=== PATIENT | female | born 1955 | race Caucasian/White ===

== ENCOUNTER 2020-06-04 14:41 | Observation (INO) | payer BC ==
[2020-06-04] MEDS ORDERED: SODIUM CHLORIDE 0.9% 500 ML 500 ML IV STA (14:45)
[2020-06-04 14:57] LABS: Glucose,Whole Blood 83 mg/dL (75-99)
--- NOTE | 2020-06-04 15:07 | ED ---
General Adult HPI - General Chief complaint: Neuro Symptoms/Deficit Stated complaint: Stroke Time Seen by Provider: 06/04/20 14:45 Source: patient, EMS Mode of arrival: EMS Limitations: no limitations - History of Present Illness Initial comments: Patient presents the ED by ambulance for evaluation. Per EMS, the patient's family reported to them that the patient became acutely aphasic and developed left-sided hemiparesis at about 1400 today. Per EMS, the patient had diffuse left-sided weakness and aphasia on their arrival, but the patient's symptoms have been improving since then. Patient was noted to have left-sided weakness and aphasia on arrival to the ED. A code stroke was called, and patient was sent directly to CT for imaging. After returning from CT imaging, the patient's symptoms completely resolved. Patient states that she feels much better now, and she denies having any weakness or aphasia at this time. Patient denies having any pain, fever or chills, headache, visual changes, focal numbness, neck/back/shoulder pain, chest pain, dyspnea, cough or cold symptoms, palpitations, abdominal pain, nausea or vomiting, diarrhea, urinary symptoms, or any other symptoms or complaints. Patient states that she has a history of TIA s. - Related Data Allergies Allergy/AdvReac Type Severity Reaction Status Date / Time No Known Allergies Allergy Verified 06/04/20 15:03 Review of Systems ROS Statement: Those systems with pertinent positive or pertinent negative responses have been documented in the HPI. ROS Other: All systems not noted in ROS Statement are negative. Past Medical History Past Medical History: CVA/TIA, Diabetes Mellitus, Hyperlipidemia, Hypertension Additional Past Medical History / Comment(s): type 2 DM History of Any Multi-Drug Resistant Organisms: None Reported Past Surgical History: Section, Hysterectomy, Orthopedic Surgery Additional Past Surgical History / Comment(s): thyroidectomy, R meniscus repair, partial hysterectomy Smoking Status: Never smoker Past Alcohol Use History: Occasional Past Drug Use History: None Reported General Exam Limitations: no limitations General appearance: alert, in no apparent distress Head exam: Present: atraumatic, normocephalic Eye exam: Present: normal appearance, PERRL, EOMI ENT exam: Present: normal oropharynx, mucous membranes moist Neck exam: Present: other (Trachea is in midline). Absent: tenderness, meningismus Respiratory exam: Present: normal lung sounds bilaterally. Absent: respiratory distress, wheezes, rales, rhonchi Cardiovascular Exam: Present: regular rate, normal rhythm, normal heart sounds, other (Normal radial pulses bilaterally) GI/Abdominal exam: Present: soft. Absent: distended, tenderness, guarding Extremities exam: Present: full ROM. Absent: tenderness, pedal edema, calf tenderness Back exam: Absent: tenderness Neurological exam: Present: alert, oriented X3, CN II-XII intact. Absent: motor sensory deficit Psychiatric exam: Present: normal affect, normal mood Skin exam: Present: warm, dry, intact, normal color Course Vital Signs 06/04/20 14:45 Pulse Rate 99 Respiratory 16 Rate O2 Sat by Pulse 100 Oximetry - Reevaluation(s) Reevaluation #1: 06/04/20 15:45 Case, H&P and CT findings were discussed with Dr. Pritchett (neurointerventionalist). He agrees at the patient is not a TPA candidate. He agrees with admission for TIA workup. He has no further recommendations at this time. 06/04/20 15:58 Case, H&P, test results/CT findings and my discussion with Dr. Pritchett as above were discussed with Dr. Lawson. He is aware that there is no neurology coverage and the hospital today. He accepts hospital floor admission. He has no further recommendations at this time. 06/04/20 16:20 Patient continues to deny having any focal neuro deficit, and she continues to have a normal neurological exam and ED. Patient is aware of her test results/CT findings and my discussions as above. Patient agrees with hospital admission at this time. EKG Findings - EKG Comments: EKG Findings:: Normal sinus rhythm, ventricular rate of 78 bpm, no ectopy, norm al [place] and QRS intervals, normal QT interval, normal axis, no ST or T-wave abnormality Medical Decision Making - Medical Decision Making I suspect that the patient's symptoms were likely secondary to a TIA. Patient's noncontrast head CT is negative. Patient was given a dose of aspirin in the ED. Case was discussed with neurointerventionalist Dr. Pritchett who agreed with hospital admission for TIA workup. Dr. Lawson has accepted hospital admission. - Lab Data Result diagrams: 06/04/20 14:55 06/04/20 14:55 Lab Results 07/06/04/20 06/04/20 Range/Units 14:54 14:55 14:55 WBC 6.3 (3.8-10.6) k/uL RBC 4.03 (3.80-5.40) m/uL Hgb 11.9 (11.4-16.0) gm/dL Hct 36.2 (34.0-46.0) % MCV 89.9 (80.0-100.0) fL MCH 29.6 (25.0-35.0) pg MCHC 32.9 (31.0-37.0) g/dL RDW 13.0 (11.5-15.5) % Plt Count 296 (150-450) k/uL Neutrophils % 62 % Lymphocytes % 25 % Monocytes % 6 % Eosinophils % 3 % Basophils % 1 % Neutrophils # 3.9 (1.3-7.7) k/uL Lymphocytes # 1.6 (1.0-4.8) k/uL Monocytes # 0.4 (0-1.0) k/uL Eosinophils # 0.2 (0-0.7) k/uL Basophils # 0.1 (0-0.2) k/uL PT 10.2 (9.0-12.0) sec INR 1.0 (<1.2) APTT 24.0 (22.0-30.0) sec Sodium (137-145) mmol/L Potassium (3.5-5.1) mmol/L Chloride (98-107) mmol/L Carbon Dioxide (22-30) mmol/L Anion Gap mmol/L BUN (7-17) mg/dL Creatinine (0.52-1.04) mg/dL Est GFR (CKD-EPI)AfAm (>60 ml/min/1.73 sqM) Est GFR (CKD-EPI)NonAf (>60 ml/min/1.73 sqM) Glucose (74-99) mg/dL POC Glucose (mg/dL) 83 (75-99) mg/dL POC Glu Accreditation Specialist ID Cuban, Suzie Calcium (8.4-10.2) mg/dL Total Bilirubin (0.2-1.3) mg/dL AST (14-36) U/L ALT (4-34) U/L Alkaline Phosphatase (38-126) U/L Troponin I (0.000-0.034) ng/mL Total Protein (6.3-8.2) g/dL Albumin (3.5-5.0) g/dL 06/04/20 06/04/20 Range/Units 14:55 14:55 WBC (3.8-10.6) k/uL RBC (3.80-5.40) m/uL Hgb (11.4-16.0) gm/dL Hct (34.0-46.0) % MCV (80.0-100.0) fL MCH (25.0-35.0) pg MCHC (31.0-37.0) g/dL RDW (11.5-15.5) % Plt Count (150-450) k/uL Neutrophils % % Lymphocytes % % Monocytes % % Eosinophils % % Basophils % % Neutrophils # (1.3-7.7) k/uL Lymphocytes # (1.0-4.8) k/uL Monocytes # (0-1.0) k/uL Eosinophils # (0-0.7) k/uL Basophils # (0-0.2) k/uL PT (9.0-12.0) sec INR (<1.2) APTT (22.0-30.0) sec Sodium 134 L (137-145) mmol/L Potassium 3.9 (3.5-5.1) mmol/L Chloride 101 (98-107) mmol/L Carbon Dioxide 24 (22-30) mmol/L Anion Gap 9 mmol/L BUN 15 (7-17) mg/dL Creatinine 0.80 (0.52-1.04) mg/dL Est GFR (CKD-EPI)AfAm >90 (>60 ml/min/1.73 sqM) Est GFR (CKD-EPI)NonAf 79 (>60 ml/min/1.73 sqM) Glucose 75 (74-99) mg/dL POC Glucose (mg/dL) (75-99) mg/dL POC Glu Accreditation Specialist ID Calcium 8.7 (8.4-10.2) mg/dL Total Bilirubin 0.4 (0.2-1.3) mg/dL AST 21 (14-36) U/L ALT 16 (4-34) U/L Alkaline Phosphatase 86 (38-126) U/L Troponin I <0.012 (0.000-0.034) ng/mL Total Protein 5.7 L (6.3-8.2) g/dL Albumin 3.8 (3.5-5.0) g/dL - Radiology Data Radiology results: report reviewed (Noncontrast CT head shows no acute intracranial abnormality; CT angiogram head/neck with IV contrast findings or pertinent for variant direct take off of the left vertebral artery directly from the aortic arch, unable to exclude a moderate to severe focal atherosclerotic stenosis at its origin, 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
[2020-06-04 15:16] LABS: Basophils # (A) 0.1 k/uL (0-0.2); Basophils % (A) 1 %; Eosinophils # (A) 0.2 k/uL (0-0.7); Eosinophils % (A) 3 %; HCT 36.2 % (34.0-46.0); HGB 11.9 gm/dL (11.4-16.0); Lymphocytes # (A) 1.6 k/uL (1.0-4.8); Lymphocytes % (A) 25 %; MCH 29.6 pg (25.0-35.0); MCHC 32.9 g/dL (31.0-37.0); MCV 89.9 fL (80.0-100.0); Mean Platelet Volume 7.4; Monocytes # (A) 0.4 k/uL (0-1.0); Monocytes % (A) 6 %; Neutrophils # (A) 3.9 k/uL (1.3-7.7); Neutrophils % (A) 62 %; Platelet Count 296 k/uL (150-450); RBC 4.03 m/uL (3.80-5.40); WBC 6.3 k/uL (3.8-10.6)
[2020-06-04 15:23] LABS: Prothrombin Time 10.2 sec (9.0-12.0)
--- NOTE | 2020-06-04 15:25 | CT ---
EXAMINATION TYPE: CT brain wo con for TPA DATE OF EXAM: 06/04/2020 COMPARISON: None HISTORY: 65-year-old female Neuro deficit, acute, stroke suspected, right side weakness TECHNIQUE: Examination was done in axial plane without intravenous contrast. Coronal and sagittal r econstructions performed. CT DLP: 1056 mGycm Automated exposure control for dose reduction was used. FINDINGS: There is no evidence of acute intracranial hemorrhage, acute ischemic changes, mass, mass-effect, or extra-axial fluid collection. There is no effacement of cerebral sulci or basal subarachnoid cister ns. There is no hydrocephalus. There is no midline shift. Strauss-white matter distinction is preserv ed. Mild atherosclerotic calcifications within the carotid siphons. Paranasal sinuses and mastoid air cells well pneumatized. Leftward nasal septal deviation. IMPRESSION: No acute intracranial abnormality seen. If symptoms persist, follow-up CT or MRI.
[2020-06-04 15:26] LABS: ALT 16 U/L (4-34); AST 21 U/L (14-36); African American GFR (CKD) >90 (>60 ml/min/1.73 sqM); Albumin 3.8 g/dL (3.5-5.0); Alkaline Phosphatase 86 U/L (38-126); Anion Gap 9 mmol/L; Blood Urea Nitrogen 15 mg/dL (7-17); Calcium 8.7 mg/dL (8.4-10.2); Carbon Dioxide 24 mmol/L (22-30); Chloride 101 mmol/L (98-107); Glucose 75 mg/dL (74-99); Non-African American GFR(CKD) 79 (>60 ml/min/1.73 sqM); Potassium 3.9 mmol/L (3.5-5.1); Sodium 134 mmol/L (137-145); Total Bilirubin 0.4 mg/dL (0.2-1.3); Total Protein 5.7 g/dL (6.3-8.2)
--- NOTE | 2020-06-04 15:37 | CT ---
EXAMINATION TYPE: CT angio head neck DATE OF EXAM: 06/04/2020 COMPARISON: None HISTORY: 65-year-old female Neuro deficit, acute, stroke suspected TECHNIQUE: Contiguous axial scanning of the head and neck performed with IV Contrast, patient injecte d with 65 mL of Isovue 370. Coronal/sagittal MIP reconstructions performed. 3-D reconstructions gener ated on a dedicated independent workstation. CT DLP: 382.4 mGycm Automated exposure control for dose reduction was used. FINDINGS: NECK: Some breathing motion in the visualized upper lungs. There is variant direct takeoff of the left vertebral artery directly from the aortic arch. Unable to exclude a moderate to severe focal atherosclerotic narrowing at the origin of the left vertebral art paulina. Otherwise, both vertebral arteries appear patent throughout the course. Bovine configuration to the aortic arch. Mild to moderate atelectatic change at the right carotid bifurcation with mild, less than 25% narrowi ng of the right carotid bulb. The remainder of the right common internal carotid arteries are patent. Left common carotid artery is patent. Mild atherosclerotic plaque and calcification at the left carotid bifurcation with mild, less than 20 % narrowing at the left carotid bulb. Remainder of the internal carotid artery is patent. HEAD: The vertebral and basilar arteries are patent. Persistent origin left posterior cerebral artery. This seems to have an early takeoff just beyo nd the clinoid segment of the left ICA and there may be a mild narrowing at its origin, refer to thin cut axial image 58. Small 2 mm outpouching from the distal left ICA prior to the carotid terminus. The bilateral internal carotid arteries are patent as is the remainder of the anterior circulation. No other aneurysmal changes seen. IMPRESSION: 1. NECK: VARIANT DIRECT TAKEOFF OF THE LEFT VERTEBRAL ARTERY DIRECTLY FROM THE AORTIC ARCH. UNABLE TO EXCLUDE A MODERATE TO SEVERE FOCAL ATHEROSCLEROTIC STENOSIS AT ITS ORIGIN. OTHERWISE, NO HEMODYNAMIC ALLY SIGNIFICANT COMMON OR INTERNAL CAROTID ARTERY STENOSIS ON EITHER SIDE. 2. 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 THERE MAY BE A MILD NARROWING AT ITS ORIGIN. ALSO, SMALL 2 MM OUTPOUCHING, POSSIBLE TINY ANEURYSM, FROM THE DISTAL LEFT ICA PRIOR TO THE CAROTID TERMINUS. NO LARGE VESSEL INTRACRANIAL A RTERIAL OCCLUSION.
--- NOTE | 2020-06-04 15:49 | XR ---
EXAMINATION TYPE: XR chest 2V DATE OF EXAM: 06/04/2020 COMPARISON: NONE HISTORY: Right-sided weakness and dysphasia TECHNIQUE: Frontal and lateral views of the chest are obtained. FINDINGS: There is no focal air space opacity, pleural effusion, or pneumothorax seen. The cardiac silhouette size is within normal limits. The osseous structures are intact. IMPRESSION: No acute cardiopulmonary process.
[2020-06-04] MEDS ORDERED: ASPIRIN 325 MG TAB PO STA (16:15)
--- NOTE | 2020-06-04 16:57 | P.HPIM ---
History of Present Illness H&P Date: 06/04/20 Chief Complaint: Left-sided weakness Patient is a 65-year-old female with a known history of hypertension, hyperlipidemia, diabetes type 2, hypothyroidism, history of CVA/TIA and occasional alcohol use came to ER with complaints of left-sided weakness started around 2 PM afternoon today. Patient says that she felt very hot and was going to get a glass of water and turn around, felt like passing out. According to the family and patient was unable to lift her head up and also left arm. Could not lift her left arm above the head but she was able to move her fingers. P atient also had left leg weakness. Symptoms lasted until she come to ER and had CAT scan., For about one half hour. Patient says that her symptoms have been resolved currently. Patient was aphasic on arrival to the ED. Patient says that she was doing yoga yesterday while laying back she felt di zziness twice. Patient says that she also slipped on the stairs on Friday and twisted her knee and fell. Denied any head injury. Patient otherwise denied any complaints of chest pain or shortness of breath. No nausea vomiting or abdominal pain or diarrhea. Denied any recent illnesses. No fever no chills. No cough or sputum production. EKG showed normal sinus rhythm Chest x-ray showed no acute cardiopulmonary process. CT head showed no acute intracranial abnormalities seen. CTA neck showed bradycardia and to direct takeoff of the left vertebral artery directly from the aortic arch. Unable to exclude moderate to severe focal atherosclerotic stenosis at its reason. Otherwise no hemodynamically significant, not internal carotid artery stenosis on either side. 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 There may be a mild narrowing at its origin. Also small 2 mm outpouching possibly tiny aneurysm from the distal prior to the carotid terminal. No large intracranial arterial occlusion. Review of Systems Constitutional: Patient denies any fever or chills . No generalized weakness or weight loss. Abdomen: Patient denied nausea vomiting and diarrhea and abdominal pain. Cardiovascular: Patient denies any chest pain or short of breath no p alpitations. Respiratory: patient denied any cough is from production. No shortness of breath Neurologic: Patient denied any numbness or tingling headache. Musculoskeletal: Patient denies any complaints of joint swelling or deformity. Skin: Negative Psychiatric: Negative Endocrine: No heat or cold intolerance. No recent weight gain. Genitourinary: No dysuria or hematuria. All other 14 point ROS negative except the above Past Medical History Past Medical History: CVA/TIA, Diabetes Mellitus, Hyperlipidemia, Hypertension Additional Past Medical History / Comment(s): type 2 DM History of Any Multi-Drug Resistant Organisms: None Reported Past Surgical History: Section, Hysterectomy, Orthopedic Surgery Additional Past Surgical History / Comment(s): thyroidectomy, R meniscus repair, partial hysterectomy Smoking Status: Never smoker Past Alcohol Use History: Occasional Past Drug Use History: None Reported Medications and Allergies Allergies Allergy/AdvReac Type Severity Reaction Status Date / Time No Known Allergies Allergy Verified 06/04/20 15:03 Physical Exam Vitals: Vital Signs Pulse Resp Pulse Ox 06/04/20 14:45 99 16 100 Intake and Output 06/04/20 06/04/20 06/04/20 06:59 14:59 22:59 Other: Weight 84.369 kg PHYSICAL EXAMINATION: Patient is lying in the bed comfortably, no acute distress, awake alert and oriented.. HEENT: Normocephalic. Neck is supple. Pupils reactive. Nostrils clear. Oral cavity is moist. Ears reveal no drainage. Neck reveals no JVD, carotid bruits, or thyromegaly. CHEST EXAMINATION: Trachea is central. Symmetrical expansion. Lung farmer clear to auscultation and percussion. CARDIAC: Normal S1, S2 with no gallops. No murmurs ABDOMEN: Soft. Bowel sounds normal. No organomegaly. No abdominal bruits. Extremities: reveal no edema. No clubbing or cyanosis Neurologically awake, alert, oriented x3 with well-coordinated movements. No focal deficits noted Skin: No rash or skin lesions. Psychiatric: Coperative. Nonsuicidal Musculoskeletal: No joint swelling or deformity. Normal range of motion. Results CBC & Chem 7: 06/04/20 14:55 06/04/20 14:55 Labs: Abnormal Lab Results - Last 24 Hours (Table) 06/04/20 Range/Units 14:55 Sodium 134 L (137-145) mmol/L Total Protein 5.7 L (6.3-8.2) g/dL Thrombosis Risk Factor Assmnt - DVT/VTE Prophylaxis DVT/VTE Prophylaxis: Pharmacologic Prophylaxis ordered Assessment and Plan Assessment: Left-sided weakness likely due to TIA. Resolved now. CT head is negative for acute changes. Possible orthostatic hypotension History of CVA/TIA with no residual weakness Diabetes type 2 not on any medications Hyperlipidemia Hypothyroidism DVT prophylaxis with heparin subcu Plan: Patient will be continued on telemetry monitoring. Patient was given 1 L fluid bolus in the ER. Continue with aspirin and lipid profile will be ordered. We will check TSH, B12, folate and A1c levels. Neurology was consulted. Orthostatic vitals. Continue to follow and further recommendations based on the clinical course. Time with Patient: Greater than 30
[2020-06-04 17:35] LABS: Glucose,Whole Blood 82 mg/dL (75-99)
[2020-06-04] MEDS: ATORVASTATIN 80 MG TAB PO SCH (21:07)
[2020-06-04] MEDS: VENLAFAXINE HCL 50 MG TAB PO SCH (21:07)
[2020-06-04] MEDS: buPROPion 75 MG TAB PO SCH (21:07)
[2020-06-04 21:15] LABS: Glucose,Whole Blood 136 mg/dL (75-99)
[2020-06-05] MEDS: LEVOTHYROXINE 125 MCG TAB PO SCH (06:24)
[2020-06-05 06:38] LABS: Cholesterol 138 mg/dL (<200); HDL Cholesterol 56 mg/dL (40-60); LDL Cholesterol,Calculated 74 mg/dL (0-99); Triglycerides 42 mg/dL (<150)
[2020-06-05 07:27] LABS: Glucose,Whole Blood 86 mg/dL (75-99)
[2020-06-05] MEDS: buPROPion 75 MG TAB PO SCH ×2 (09:04→22:04)
[2020-06-05] MEDS: LOSARTAN 50 MG TAB PO SCH (09:04)
[2020-06-05] MEDS: amLODIPine 10 MG TAB PO SCH (09:04)
[2020-06-05] MEDS: VENLAFAXINE HCL 50 MG TAB PO SCH ×2 (09:05→22:04)
[2020-06-05] MEDS: MELOXICAM 7.5 MG TAB PO SCH (09:05)
[2020-06-05 12:04] LABS: Glucose,Whole Blood 101 mg/dL (75-99)
--- NOTE | 2020-06-05 13:34 | P.CNNES ---
History of Present Illness Consult date: 06/05/20 Requesting physician: Janessa Lawson Reason for Consult: TIA left flaccid and expressive aphasia. History of Present Illness: Patient is a 65-year-old female, brought to the hospital by EMS after family reported patient became acutely aphasic and developed left-sided hemiparesis at about 2 PM yesterday. Patient arrived to the ER at 2:41 PM. Patient was noted to have gross left hemiparesis and aphasia. Stroke code was activated in the ED. Patient was sent directly to the CT for imaging. When patient came back from CT, her symptoms had resolved. Stroke neurologist Dr. Pritchett was contacted and patient was felt not a candidate for TPA. Patient's vitals in the ER was blood pressure 149/83, pulse rate 68, temperature 97.6. Patient underwent CT head, which showed no acute process. CTA of neck showed ve ry indirect takeoff of the left vertebral artery directly from the aortic arch. Unable to exclude moderate to severe focal atherosclerotic stenosis at its origin. Otherwise no hemodynamically significant, no internal carotid artery stenosis on either side. CTA of the head showed persistent origin left LEATHER SORTER which has an early takeoff just beyond the glenoid segment of the left ICA. There may be a mild narrowing at its origin. Also small, 2 mm outpouching, possibly tiny aneurysm, from the distal left ICA prior to the carotid terminus. No large vessel intracranial arterial occlusion. Chest x-ray showed no acute cardiopulmonary process. EKG shows normal sinus rhythm. Patient's blood test shows normal CBC, Chem-20, total cholesterol is 138, LDL 74, HDL 56 and triglycerides 42. B12 is 358 and TSH normal. Patient tells me that she was playing cards when she felt hot. She stood up to get water and took a drink. She felt will pass out. She sat down. Her dad asked her a few questions and she could not answer. He yelled on patient's to get down quick. 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 She was breathing heavy. Did not have strength to picker and sorter load and unload the glass. She knew what was going on. She felt weak on the left side. Patient was brought to the hospital by ambulance. EMS flow sheet not available. Subsequently her symptoms resolved as mentioned above. Patient has history of diabetes since 2010, hypertension, hyperlipidemia. She is a nonsmoker. She does not take any antiplatelet medication at home. Patient states that she had history of possible TIA about over 20 years ago. She also had history of some seizure type spells about 15-20 years ago. She had multiple seizure type spells within a period of one month. She was found to have low iron. She was never placed on any antiepileptic medication. She has not had an y seizure type spells for last 15-20 years. Review of Systems As mentioned above in detail HPI. Patient denies chest pain, shortness of breath, wheezing or cough. Denies diplopia, nausea vomiting diarrhea. Denies abdominal pain. Denies neck or back pain. All other review of systems unremarkable. Past Medical History Past Medical History: CVA/TIA, Diabetes Mellitus, Hyperlipidemia, Hypertension, Osteoarthritis (OA), Sleep Apnea/CPAP/BIPAP, Thyroid Disorder Additional Past Medical History / Comment(s): type 2 DM. February 2020 fell down the steps and hit the back of head on wall. no loss of consciousness. Did not have medical assessment at that time. 05/31/20 tripped on carpet on stairs and twisted right ankle and knee and was seen in Urgent Care. History of Any Multi-Drug Resistant Organisms: None Reported Past Surgical History: Section, Hysterectomy, Orthopedic Surgery Additional Past Surgical History / Comment(s): thyroidectomy, R meniscus repair, partial hysterectomy Past Anesthesia/Blood Transfusion Reactions: No Reported Reaction Past Psychological History: ADD/ADHD, Bipolar, Depression Smoking Status: Never smoker Past Alcohol Use History: Occasional Past Drug Use History: None Reported - Past Family History Mother Family Medical History: Cancer Additional Family Medical History / Comment(s): Liver cancer Father Family Medical History: Hypertension Medications and Allergies Home Medications Medication Instructions Recorded Confirmed Type Atorvastatin Calcium [Lipitor] 80 mg PO HS 06/04/20 06/04/20 History Levothyroxine Sodium [Synthroid] 125 mcg PO DAILY 06/04/20 06/04/20 History Losartan [Cozaar] 50 mg PO HS 06/04/20 06/04/20 History Meloxicam 15 mg PO DAILY 06/04/20 06/04/20 History Venlafaxine HCl [Effexor] 100 mg PO BID 06/04/20 06/04/20 History amLODIPine [Norvasc] 10 mg PO HS 06/04/20 06/04/20 History buPROPion [Wellbutrin] 75 mg PO BID 06/04/20 06/04/20 History metFORMIN HCL [Glucophage] 500 mg PO BID 06/04/20 06/04/20 History Allergies Allergy/AdvReac Type Severity Reaction Status Date / Time No Known Allergies Allergy Verified 06/04/20 17:11 Physical Examination - Vital Signs Vital Signs: Vital Signs Temp Pulse Pulse Resp BP BP Pulse Ox 06/05/20 09:00 97.8 F 77 18 113/70 99 06/05/20 03:00 98.2 F 77 18 129/82 98 06/04/20 20:15 98.2 F 85 18 112/74 94 L 06/04/20 17:25 97.6 F 68 16 149/83 98 06/04/20 16:52 97.5 F L 71 16 115/73 98 06/04/20 14:45 99 16 100 Intake and Output 06/04/20 06/05/20 06/05/20 22:59 06:59 14:59 Intake Total 500 Balance 500 Intake: IV 500 Sodium Chloride 0.9% 500 500 ml 500 ml @ 999 mls/hr IV .Q31M STA Rx#:[id number] Other: Voiding Method Toilet Toilet Toilet # Voids 1 3 3 Weight 84.369 kg On examination patient is a late middle aged female, in no acute dist ress. Patient is alert awake oriented to time place and person. Speech and language functions are normal. Attention and concentration fund of knowledge is adequate. On cranial examination pupils are round and reacting to light, visual farmer are full, extraocular muscles are intact. Face is symmetric, tongue protrudes the midline. Palatal elevation sensation normal. Hearing and shoulder shrug normal. On muscle strength testing there is no pronator drift and the strength is normal in arms and legs distally and proximally. Reflexes are 1+ in the upper limbs, 2+ in the lower limbs and plantars are withdrawal. Sensory touch is equal. No ataxia for [id number] testing. Tone and bulk of muscles normal. There is no obvious bruit, S1 and S2 audible. No peripheral edema. Chest is clear. Abdomen soft nontender. Results - Laboratory Findings CBC and BMP: 06/04/20 14:55 06/04/20 14:55 Abnormal Lab Findings: Abnormal Labs 06/04/20 06/04/20 14:55 21:10 Sodium 134 L POC Glucose (mg/dL) 136 H Total Protein 5.7 L Assessment and Plan Assessment: * Probable TIA manifesting with difficulty speaking and left-sided weakness, now seems to have completely resolved. Current NIH stroke scale is 0. * Hypertension * Diabetes * Hyperlipidemia Plan: * Patient had possible TIA. Patient has multiple vascular risk factors. She was not on any antiplatelet medication at home. Patient will be started on as pirin regimen daily, and should continue it indefinitely. * We will check 2-D echo to rule out any embolic source. * Continue telemetry monitoring to rule out arrhythmia. * Hemoglobin A1c 5.7, normal. * Patient's total cholesterol is 138, LDL 74, HDL 56 and triglycerides 42. Continue Lipitor 80 mg. * Patient also has history of some seizure type spells in the past. We will check EEG to rule out any epileptiform activity.
[2020-06-05 14:05] LABS: Hemoglobin A1C 5.7 % (4.0-6.0)
[2020-06-05 17:07] LABS: Glucose,Whole Blood 90 mg/dL (75-99)
--- NOTE | 2020-06-05 18:08 | EEG ---
ELECTROENCEPHALOGRAM REPORT DATE OF SERVICE: 06/05/2020 PREAMBLE: This is a 65-year-old female admitted with possible TIA. Patient does have history of seizure disorder in the past. This study is performed to evaluate for any epileptiform activity. EEG FINDINGS: This is a 21-channel routine EEG recording in a patient utilizing 10-20 international system with referential and bipolar montages. Background consists of well developed, well regulated, moderate to high amplitude activity in 9 to 10 hertz alpha. Background is posterior-dominant and reactive to eye opening and closing. Photic driving response was not seen. Mild drowsiness was seen with appearance of bilaterally symmetric theta frequency rhythm. Deeper stages of sleep were not seen. EKG rhythm lead revealed no obvious arrhythmia. No focal or generalized epileptiform activity was seen. IMPRESSION: This is a normal awake and drowsy EEG. No focal lateralized or epileptiform activity was seen. MMODL / IJN: [id number] /
[2020-06-05] MEDS: ASPIRIN 325 MG TAB PO SCH (18:39)
[2020-06-05] MEDS: ATORVASTATIN 80 MG TAB PO SCH (22:04)
[2020-06-05 23:26] LABS: Glucose,Whole Blood 88 mg/dL (75-99)
--- NOTE | 2020-06-06 01:29 | P.PN ---
Subjective Progress Note Date: 06/05/20 Principal diagnosis: TIA Patient is a 65-year-old female with a known history of hypertension, hyperlipidemia, diabetes type 2, hypothyroidism, history of CVA/TIA and occasional alcohol use came to ER with complaints of left-sided weakness started around 2 PM afternoon today. Patient says that she felt very hot and was going to get a glass of water and turn around, felt like passing out. According to the family and patient was unable to lift her head up and also left arm. Could not lift her left arm above the head but she was able to move her fingers. Patient also had left leg weakness. Symptoms lasted until she come to ER and had CAT scan., For about one half hour. Patient says that her symptoms have been resolved currently. Patient was aphasic on arrival to the ED. Patient says that she was doing yoga yesterday while laying back she felt dizziness twice. Patient says that she also slipped on the stairs on Friday and twisted her knee and fell. Denied any head injury. Patient otherwise denied any complaints of chest pain or shortness of breath. No nausea vomiting or abdominal pain or diarrhea. Denied any recent illnesses. No fever no chills. No cough or sputum production. EKG showed normal sinus rhythm Chest x-ray showed no acute cardiopulmonary process. CT head showed no acute intracranial abnormalities seen. CTA neck showed bradycardia and to direct takeoff of the left vertebral artery directly from the aortic arch. Unable to exclude moderate to severe focal atherosclerotic stenosis at its reason. Otherwise no hemodynamically sig nificant, not internal carotid artery stenosis on either side. CTA head showed persistent position left ACUTE CARE SURGEON which he has an early takeoff just beyond the glenoid segment of the left ICA. There may be a mild narrowing at its origin. Also small 2 mm outpouching possibly tiny aneurysm from the distal prior to the carotid terminal. No large intracranial arterial occlusion. 06/05/2020 Patient currently denied any complaints of chest pain or shortness of. No further episodes of left-sided weakness. No speech difficulty. His TIA symptoms have been resolved. Patient was seen by neurology and recommended 2D echocardiogram and EEG which are pending at this time. Otherwise LDL is 74, B12 358, TSH 0.751 and folate level is pending. Patient has been afebrile. No cough or sputum production. Current medications reviewed. Objective - Vital Signs Vital signs: Vital Signs Temp 98.6 F 06/05/20 20:13 Pulse 82 06/05/20 20:13 Resp 18 06/05/20 20:13 BP 128/70 06/05/20 20:13 Pulse Ox 96 06/05/20 20:13 Intake & Output 06/05/20 06/05/20 06/06/20 06:59 18:59 06:59 Intake Total 1280 Balance 1280 Intake: Oral 1280 Other: Voiding Method Toilet Toilet Toilet # Voids 3 3 1 - Exam PHYSICAL EXAMINATION: Patient is lying in the bed comfortably, no acute distress, awake alert and oriented.. HEENT: Normocephalic. Neck is supple. Pupils reactive. Nostrils clear. Oral cavity is moist. Ears reveal no drainage. Neck reveals no JVD, carotid bruits, or thyromegaly. CHEST EXAMINATION: Trachea is central. Symmetrical expansion. Lung farmer clear to auscultation and percussion. CARDIAC: Normal S1, S2 with no gallops. No murmurs ABDOMEN: Soft. Bowel sounds normal. No organomegaly. No abdominal bruits. Extremities: reveal no edema. No clubbing or cyanosis Neurologically awake, alert, oriented x3 with well-coordinated movements. No focal deficits noted Skin: No rash or skin lesions. Psychiatric: Coperative. Nonsuicidal Musculoskeletal: No joint swelling or deformity. Normal range of motion. - Labs CBC & Chem 7: 06/04/20 14:55 06/04/20 14:55 Labs: Abnormal Lab Results - Last 24 Hours (Table) 06/05/20 Range/Units 12:02 POC Glucose (mg/dL) 101 H (75-99) mg/dL Assessment and Plan Assessment: Left-sided weakness likely due to TIA. Resolved now. CT head is negative for acute changes. Possible orthostatic hypotension History of CVA/TIA with no residual weakness Diabetes type 2 not on any medications Hyperlipidemia Hypothyroidism DVT prophylaxis with heparin subcu Plan: Patient will be continued on telemetry monitoring. Patient was given 1 L fluid bolus in the ER. Continue with aspirin and lipid profile will be ordered. TSH, B12, folate and A1c levels reviewed. Neurology has seen the pt. . Orthostatic vitals negative. Continue to follow and further recommendations based on the clinical course. Time with Patient: Greater than 30
[2020-06-06] MEDS: LEVOTHYROXINE 125 MCG TAB PO SCH (06:47)
[2020-06-06 06:51] LABS: Glucose,Whole Blood 89 mg/dL (75-99)
[2020-06-06] MEDS: VENLAFAXINE HCL 50 MG TAB PO SCH (07:30)
[2020-06-06] MEDS: LOSARTAN 50 MG TAB PO SCH (07:30)
[2020-06-06] MEDS: CYANOCOBALAMIN 500 MCG TAB PO SCH ×3 (07:30→12:05)
[2020-06-06] MEDS: ASPIRIN 325 MG TAB PO SCH (07:32)
[2020-06-06] MEDS: buPROPion 75 MG TAB PO SCH (07:32)
[2020-06-06] MEDS: amLODIPine 10 MG TAB PO SCH (07:32)
[2020-06-06 08:16] VITALS: BP 129/79; PULSE 77; RESP 14; TEMP 98.2
[2020-06-06] MEDS: MELOXICAM 7.5 MG TAB PO SCH (08:52)
--- NOTE | 2020-06-06 10:31 | ECHOF ---
Referral Reason:TIA MEASUREMENTS -------- HEIGHT: 170.2 cm WEIGHT: 84.4 kg BP: 113/70 RVIDd: 3.3 cm (< 3.3) IVSd: 1.1 cm (0.6 - 1.1) LVIDd: 3.4 cm (3.9 - 5.3) LVPWd: 1.1 cm (0.6 - 1.1) IVSs: 1.5 cm LVIDs: 2.4 cm LVPWs: 1.6 cm LA Diam: 2.8 cm (2.7 - 3.8) LAESV Index (A-L): 21.09 ml/m Ao Diam: 3.0 cm (2.0 - 3.7) AV Cusp: 2.1 cm (1.5 - 2.6) MV EXCURSION: 18.048 mm (> 18.000) MV EF SLOPE: 74 mm/s (70 - 150) EPSS: 0.4 cm MV E Forrest: 0.99 m/s MV DecT: 340 ms MV A Forrest: 1.05 m/s MV E/A Ratio: 0.94 RAP: 5.00 mmHg RVSP: 28.65 mmHg FINDINGS -------- Sinus rhythm. This was a technically adequate study. The left ventricular size is normal. There is borderline concentric left ventricular hypertrophy. Overall left ventricular systolic function is normal with, an EF between 60 - 65 %. The right ventricle is mildly enlarged. Normal LA size by volume 22+/-6 ml/m2. The right atrium is normal in size. Interatrial and interventricular septum intact. Aortic valve is trileaflet and is mildly thickened. The mitral valve is normal. Mild tricuspid regurgitation present. Right ventricular systolic pressure is normal at < 35 mmHg. There is no pulmonic regurgitation present. The aortic root size is normal. Normal inferior vena cava with normal inspiratory collapse consistent with estimated right atrial pre ssure of 5 mmHg. There is no pericardial effusion. CONCLUSIONS -------- 1. Sinus rhythm. 2. This was a technically adequate study. 3. The left ventricular size is normal. 4. There is borderline concentric left ventricular hypertrophy. 5. Overall left ventricular systolic function is normal with, an EF between 60 - 65 %. 6. The right ventricle is mildly enlarged. 7. Aortic valve is trileaflet and is mildly thickened. 8. The mitral valve is normal. 9. Mild tricuspid regurgitation present. 10. Right ventricular systolic pressure is normal at < 35 mmHg. 11. There is no pericardial effusion. ASSISTANT FIELD HOCKEY COACH: Danelle Andujar RDCS
[2020-06-06 11:23] LABS: Glucose,Whole Blood 92 mg/dL (75-99)
--- NOTE | 2020-06-06 12:09 | P.PN ---
Subjective Progress Note Date: 06/06/20 Patient feels fine. No focal symptoms. Back to baseline. Patient's was also present. Objective - Vital Signs Vital signs: Vital Signs Temp 98.2 F 06/06/20 07:29 Pulse 77 06/06/20 07:29 Resp 14 06/06/20 07:29 BP 129/79 06/06/20 07:29 Pulse Ox 95 06/06/20 07:29 Intake & Output 06/05/20 06/06/20 06/06/20 18:59 06:59 18:59 Intake Total 1280 240 Balance 1280 240 Intake: Oral 1280 240 Other: Voiding Method Toilet Toilet Toilet # Voids 3 1 - Exam Nonfocal - Labs CBC & Chem 7: 06/04/20 14:55 06/04/20 14:55 Assessment and Plan Assessment: * Probable TIA manifesting with difficulty speaking and left-sided weakness, now seems to have completely resolved. Current NIH stroke scale is 0. * Hypertension * Diabetes * Hyperlipidemia Plan: * Patient had possible TIA. Patient has multiple vascular risk factors. She was not on any antiplatelet medication at home. Patient will be started on aspirin regimen daily, and should continue it indefinitely. * 2-D echo showed normal left-ventricular size, borderline concentric LVH. Nor mal EF 60-65%. Aortic valve is trileaflet and is mildly thickened. No obvious embolic source identified. * Continue telemetry monitoring to rule out arrhythmia. * Hemoglobin A1c 5.7, normal. * Patient's total cholesterol is 138, LDL 74, HDL 56 and triglycerides 42. Continue Lipitor 80 mg. * Patient's EEG was normal. No epileptiform activity was seen. * Neurologically clear for discharge.
--- NOTE | 2020-06-06 13:34 | P.DS ---
Providers Date of admission: 06/04/20 16:20 Attending physician: Janessa Lawson Consults: 06/04/20 17:54 Consult Physician Routine Consulting Provider: Fercho Martell Consult Reason/Comments: TIA left flaccid and expressive aphasia Do you want consulting provider notified?: Yes Primary care physician: Physician Nonstaff Hospital Course: Diagnoses: Left-sided weakness and speech difficulty likely due to TIA. Completely Resolved now. Neurologist evaluated the patient and cleared her for discharge History of CVA/TIA with no residual weakness Diabetes type 2 not on any medications Hyperlipidemia Hypothyroidism Hospital course: Patient is a 65-year-old female with a known history of hypertension, hyperlipidemia, diabetes type 2, hypothyroidism, history of CVA/TIA and occasional alcohol use came to ER with complaints of left-sided weakness, Symptoms lasted until she come to ER. CT head is negative for acute changes. (( CTA of neck showed very indirect takeoff of the left vertebral artery directly from the aortic arch. Unable to exclude moderate to severe focal atherosclerotic stenosis at its origin. Otherwise no hemodynamically significant, no internal carotid artery stenosis on either side. CTA of the head showed persistent origin left DIGITAL DESIGNER which has an early takeoff just beyond the glenoid segment of the left ICA. There may be a mild narrowing at its origin. Also small, 2 mm outpouching, possibly tiny aneurysm, from the distal left ICA prior to the carotid terminus. No large vessel intracranial arterial occlusion. )), Hemoglobin A1c 5.7, patient was then was checked and she is on Lipitor Echocardiogram: Normal EF 60-65%. Aortic valve is trileaflet and is mildly thickened. No obvious embolic source identified Telemetry: Sinus rhythm Patient returned to her baseline, on the day of discharge no headache, no weakness, no numbness Patient cleared for discharge by neurology Problems and management plan were discussed with the patient and he verbalized understanding and acceptance Patient was found stable and can be discharged home however he needs follow-up as an outpatient. Patient was instructed to follow up with PCP within one week and patient agrees. She moved to [facility] and she was another PCP, we suggested Dr. Cordoba and she agrees to call and make appointments with her Also patient was instructed to follow up with neurologist Dr. Huitron or Dr. Rivera within one to 2 weeks and she agrees Gen: patient is a AAOx3, no distress CVS: S1-S2, RRR, no murmur Lungs: B/L CTA, no wheezing Abdomen: soft, no distention, no tenderness, positive bowel sounds Extremity: no leg edema or induration Time spent more than 35 minutes Patient Condition at Discharge: Stable Plan - Discharge Summary New Discharge Prescriptions: No Action buPROPion [Wellbutrin] 75 mg PO BID amLODIPine [Norvasc] 10 mg PO HS Venlafaxine HCl [Effexor] 100 mg PO BID Meloxicam 15 mg PO DAILY Losartan [Cozaar] 50 mg PO HS Levothyroxine Sodium [Synthroid] 125 mcg PO DAILY Atorvastatin Calcium [Lipitor] 80 mg PO HS metFORMIN HCL [Glucophage] 500 mg PO BID Discharge Medication List Atorvastatin Calcium [Lipitor] 80 mg PO HS 06/04/20 [History] Levothyroxine Sodium [Synthroid] 125 mcg PO DAILY 06/04/20 [History] Losartan [Cozaar] 50 mg PO HS 06/04/20 [History] Meloxicam 15 mg PO DAILY 06/04/20 [History] Venlafaxine HCl [Effexor] 100 mg PO BID 06/04/20 [History] amLODIPine [Norvasc] 10 mg PO HS 06/04/20 [History] buPROPion [Wellbutrin] 75 mg PO BID 06/04/20 [History] metFORMIN HCL [Glucophage] 500 mg PO BID 06/04/20 [History] Follow up Appointment(s)/Referral(s): None,Stated [REFERRING] - 1-2 days Raymundo Huitron MD [STAFF PHYSICIAN] - 1 Week (urology ) Huey Rivera DO [STAFF PHYSICIAN] - 1 Week (neurology )
[2020-06-06] MEDS ORDERED: metFORMIN 500 MG TAB PO SCH (16:00)
== END 2020-06-06 14:02 | disposition home or self-care (01) ==
LOC: EC 14:41 → 3NCARDOBS 16:20
PROVIDERS: ADMIT Internal Medicine; ATTEND Internal Medicine
DX: R53.1 Weakness (principal); R47.9 Unspecified speech disturbances; G81.94 Hemiplegia, unspecified affecting left nondominant side; R47.01 Aphasia; Z86.73 Personal history of transient ischemic attack (TIA), and cerebral infarction without residual deficits; E11.9 Type 2 diabetes mellitus without complications; E78.5 Hyperlipidemia, unspecified; I10 Essential (primary) hypertension; E89.0 Postprocedural hypothyroidism; M19.90 Unspecified osteoarthritis, unspecified site; G47.30 Sleep apnea, unspecified; Z99.89 Dependence on other enabling machines and devices; F31.9 Bipolar disorder, unspecified; F90.9 Attention-deficit hyperactivity disorder, unspecified type; S89.90XD Unspecified injury of unspecified lower leg, subsequent encounter; W10.9XXD Fall (on) (from) unspecified stairs and steps, subsequent encounter; X50.1XXD Overexertion from prolonged static or awkward postures, subsequent encounter; Z79.899 Other long term (current) drug therapy; Z79.890 Hormone replacement therapy; Z79.84 Long term (current) use of oral hypoglycemic drugs; Z79.1 Long term (current) use of non-steroidal anti-inflammatories (NSAID); Z90.711 Acquired absence of uterus with remaining cervical stump; Z11.59 Encounter for screening for other viral diseases; Z80.0 Family history of malignant neoplasm of digestive organs; Z82.49 Family history of ischemic heart disease and other diseases of the circulatory system
CPT/HCPCS: 96361 ×3; 96360; 99285; 36415; 95816; 93005; 93306; 97161; 97165; 82747; 80061; 80053; 84443; 82607; 84484; 85025; 85610; 85730; 83036; 71046; 70496; 70450; 70498; G0378 ×3; U0003; Q9967

== ENCOUNTER → 2020-08-18 | Outpatient (CLI) | payer BC ==
--- NOTE | 2020-10-16 12:15 | EM ---
EVENT MONITOR EVENT MONITOR: Patient was monitored between August 18 and October 12, 2020. Baseline rhythm is sinus mechanism with normal conduction. Ventricular ectopic activity was noted in the form of single PVCs. PACs were noted. Patient had a short burst of paroxysmal supraventricular tachycardia that was asymptomatic. No pauses were noted. No atrial fibrillation. MMODL / IJN: [id number] /
== END | disposition home or self-care (01) ==
LOC: RADECHMAIN 11:52
PROVIDERS: ATTEND Psychiatry & Neurology Neurology
DX: I49.3 Ventricular premature depolarization (principal); I49.1 Atrial premature depolarization; I47.1 Supraventricular tachycardia; I48.91 Unspecified atrial fibrillation
CPT/HCPCS: 93270

== ENCOUNTER → 2020-10-04 | Outpatient (CLI) | payer BC ==
--- NOTE | 2020-10-17 11:23 | MM ---
Reason for exam: screening (asymptomatic). Last mammogram was performed 1 year and 9 months ago. History: Patient is postmenopausal and has history of other cancer at age 64. Family history of breast cancer in maternal aunt. Physical Findings: A clinical breast exam by your physician is recommended on an annual basis and results should be correlated with mammographic findings. MG Screening Mammo w CAD Bilateral CC and MLO view(s) were taken. Prior study comparison: December 21, 2018, mammogram, performed at [place]. November 18, 2017, mammogram, performed at [place]. The breast tissue is heterogeneously dense. This may lower the sensitivity of mammography. Benign appearing bilateral calcifications. ASSESSMENT: Benign, BI-RAD 2 RECOMMENDATION: Routine screening mammogram of both breasts in 1 year.
== END | disposition home or self-care (01) ==
LOC: RADMAMWWP 15:48
PROVIDERS: ATTEND Internal Medicine
DX: Z12.31 Encounter for screening mammogram for malignant neoplasm of breast (principal)
CPT/HCPCS: 77067

== ENCOUNTER → 2020-12-11 | Outpatient (CLI) | payer BC ==
--- NOTE | 2020-12-11 11:17 | XR ---
EXAMINATION TYPE: XR ribs LT w pa chest xray DATE OF EXAM: 12/11/2020 COMPARISON: NONE HISTORY: Pain TECHNIQUE: Single view of the chest 4 views of the ribs are submitted. FINDINGS: The lungs are clear. No Evidence for pneumothorax. No evidence for focal contusion. Medi astinal structures are midline. Evaluation of the ribs fails to demonstrate evidence for displaced r ib fracture or secondary sign of rib fracture. IMPRESSION: Negative study
== END | disposition home or self-care (01) ==
LOC: RADXRYALE 10:37
PROVIDERS: ATTEND Internal Medicine
DX: R07.81 Pleurodynia (principal)

== ENCOUNTER → 2021-02-02 | Outpatient (CLI) | payer BC ==
--- NOTE | 2021-02-02 12:36 | MR ---
EXAMINATION TYPE: MR angio neck wo/w con DATE OF EXAM: 02/02/2021 COMPARISON: CTA neck June 04, 2020 HISTORY: Word forming issues, hx of tia, memory loss TECHNIQUE: Time of flight images focusing on the [place] of Das were performed without contrast.. 2-D and 3-D postprocessing imaging is performed on independent workstation and reviewed.. FINDINGS: There is four-vessel aortic arch redemonstrated which is normal variant. Right common carot id artery shows normal origin from the right brachiocephalic artery. Some tortuous course to the left proximal common carotid artery which shows no significant stenosis, this is better evaluated on rece nt CTA. Irregularities at level of bilateral carotid bulbs correspond to peripheral calcified plaque on comparison CT, extending slightly more prominent on the right versus left. No new significant warner nosis is identified in the common or internal carotid arteries bilaterally. Remainder patent bilatera l external carotid arteries without significant stenosis. Visualized portion of both vertebral arteri es remain patent. IMPRESSION: No new significant stenosis in common or internal carotid arteries bilaterally with parti cular attention to level of carotid bulbs.
== END ==
LOC: RADMRIMAIN 10:55
PROVIDERS: ATTEND Psychiatry & Neurology Neurology
DX: I72.0 Aneurysm of carotid artery (principal); Z86.73 Personal history of transient ischemic attack (TIA), and cerebral infarction without residual deficits
CPT/HCPCS: 70549; A9585

== ENCOUNTER → 2021-02-21 | Outpatient (CLI) | payer BC ==
--- NOTE | 2021-02-21 14:20 | US ---
EXAMINATION TYPE: US venous doppler duplex LE DATE OF EXAM: 02/21/2021 2:12 PM COMPARISON: NONE CLINICAL HISTORY: M79.89 Leg swelling. bilateral leg swelling. On aspirin. No hx dvt. SIDE PERFORMED: Bilateral TECHNIQUE: The lower extremity deep venous system is examined utilizing real time linear array sonog aleksandar with graded compression, doppler sonography and color-flow sonography. VESSELS IMAGED: Common Femoral Vein Deep Femoral Vein Greater Saphenous Vein * Femoral Vein Popliteal Vein Small Saphenous Vein * Proximal Calf Veins (* superficial vessels) Right Leg: Negative for DVT Left Leg: Negative for DVT IMPRESSION: 1. Bilateral lower extremity ultrasound negative for deep venous thrombosis.
== END | disposition home or self-care (01) ==
LOC: RADUSWWP 13:43
PROVIDERS: ATTEND Internal Medicine
DX: M79.89 Other specified soft tissue disorders (principal)
CPT/HCPCS: 93970

== ENCOUNTER → 2021-03-01 | Outpatient (CLI) | payer BC ==
--- NOTE | 2021-03-01 11:39 | CT ---
EXAMINATION TYPE: CT angio head DATE OF EXAM: 03/01/2021 10:03 AM COMPARISON: CTA head June 04, 2020 HISTORY: Cerebral aneurysm, nonruptured CT DLP: 2223 mGycm Automated exposure control for dose reduction was used. TECHNIQUE: Performed without and with IV Contrast, patient injected with 100 ml mL of Isovue 370. 3D reconstructed images are created on an independent workstation and reviewed.. FINDINGS: Noncontrast CT shows no acute intracranial hemorrhage or midline shift. Ventricles and sulci within n ormal limits in size for age. Globes are intact and visualized sinuses are clear. CTA images demonstrate codominant vertebral basilar system. There is persistent hypoplastic left P1 s egment with filling of the left P2 segment from origin of the left internal carotid artery. No new stenosis or aneurysm. Patent anterior communicating artery redemonstrated. No new significant foc al stenosis. [id number] calcified plaque distal internal carotid arteries bilaterally is redemo nstrated. Persistent 2 mm abnormal posterior outpouching or possible tiny aneurysm from the distal le ft internal carotid artery seen on raw data image 198, possible tiny branch vessel versus eccentric a neurysm. IMPRESSION: Overall stable findings. Possible tiny branch vessel versus aneurysm posterior aspect dis aunrdea left internal carotid artery. No new aneurysm is seen.
== END | disposition home or self-care (01) ==
LOC: RADCTMAIN 09:14
PROVIDERS: ATTEND Psychiatry & Neurology Neurology
DX: I67.1 Cerebral aneurysm, nonruptured (principal)
CPT/HCPCS: 70496; Q9967

== ENCOUNTER 2021-03-08 16:22 | Emergency (ER) | payer BC ==
[2021-03-08 16:30] VITALS: RESP 18; TEMP 98.2
[2021-03-08 17:13] LABS: Albumin 4.8 g/dL (3.5-5.0); Calcium 9.9 mg/dL (8.4-10.2); Magnesium 2.3 mg/dL (1.6-2.3); Potassium 3.9 mmol/L (3.5-5.1); Total Bilirubin 0.4 mg/dL (0.2-1.3); Total Protein 7.3 g/dL (6.3-8.2)
[2021-03-08 17:14] LABS: INR 0.9 (<1.2); Partial Thromboplastin Time 23.8 sec (22.0-30.0)
[2021-03-08 17:16] LABS: Basophils # (A) 0.1 k/uL (0-0.2); Basophils % (A) 2 %; Eosinophils # (A) 0.3 k/uL (0-0.7); Eosinophils % (A) 4 %; HCT 38.7 % (34.0-46.0); HGB 12.5 gm/dL (11.4-16.0); Lymphocytes # (A) 1.6 k/uL (1.0-4.8); Lymphocytes % (A) 24 %; MCHC 32.2 g/dL (31.0-37.0); MCV 83.7 fL (80.0-100.0); Mean Platelet Volume 7.3; Monocytes # (A) 0.5 k/uL (0-1.0); Monocytes % (A) 7 %; Neutrophils # (A) 4.2 k/uL (1.3-7.7); Neutrophils % (A) 61 %; Platelet Count 419 k/uL (150-450); RBC 4.62 m/uL (3.80-5.40); RDW 14.1 % (11.5-15.5); WBC 6.8 k/uL (3.8-10.6)
[2021-03-08 17:26] LABS: D-Dimer 0.63 mg/L FEU (<0.60)
--- NOTE | 2021-03-08 17:51 | ED ---
Extremity Problem HPI - General Chief complaint: Extremity Problem,Nontraumatic Stated complaint: Poss DVT Time Seen by Provider: 03/08/21 16:30 Source: patient, RN notes reviewed, old records reviewed Mode of arrival: ambulatory Limitations: no limitations - History of Present Illness Initial comments: This is a 65-year-old female presents to the emergency department complaining that she's been having difficulty breathing and swelling in her right leg that's excessive area patient states is very slight amount of swelling in the left leg. Patient states it started in November is gotten progressively worse. Patient states she's to walk 50 minutes a day and now she walks the mailbox and back and short of breath. Patient denies any chest pain or palpitations. Patient denies any recent fever chills or cough. Patient denies abdominal pain patient nausea vomiting diarrhea. - Related Data Home Medications Medication Instructions Recorded Confirmed Atorvastatin Calcium [Lipitor] 80 mg PO HS 06/04/20 06/04/20 Levothyroxine Sodium [Synthroid] 125 mcg PO DAILY 06/04/20 06/04/20 Losartan [Cozaar] 50 mg PO HS 06/04/20 06/04/20 Venlafaxine HCl [Effexor] 100 mg PO BID 06/04/20 06/04/20 amLODIPine [Norvasc] 10 mg PO HS 06/04/20 06/04/20 buPROPion [Wellbutrin] 75 mg PO BID 06/04/20 06/04/20 metFORMIN HCL [Glucophage] 500 mg PO BID 06/04/20 06/04/20 Previous Rx's Medication Instructions Recorded Aspirin 325 mg PO DAILY #30 tab 06/06/20 Cyanocobalamin [Vitamin B-12] 250 mcg PO DAILY #21 tab 06/06/20 Allergies Allergy/AdvReac Type Severity Reaction Status Date / Time No Known Allergies Allergy Verified 03/08/21 16:31 Review of Systems ROS Statement: Those systems with pertinent positive or pertinent negative responses have been documented in the HPI. ROS Other: All systems not noted in ROS Statement are negative. Past Medical History Past Medical History: CVA/TIA, Diabetes Mellitus, Hyperlipidemia, Hypertension, Osteoarthritis (OA), Sleep Apnea/CPAP/BIPAP, Thyroid Disorder Additional Past Medical History / Comment(s): type 2 DM. February 2020 fell down the steps and hit the back of head on wall. no loss of consciousness. Did not have medical assessment at that time. 05/31/20 tripped on carpet on stairs and twisted right ankle and knee and was seen in Urgent Care. History of Any Multi-Drug Resistant Organisms: None Reported Past Surgical History: Section, Hysterectomy, Orthopedic Surgery Additional Past Surgical History / Comment(s): thyroidectomy, R meniscus repair, partial hysterectomy Past Anesthesia/Blood Transfusion Reactions: No Reported Reaction Past Psychological History: ADD/ADHD, Bipolar, Depression Smoking Status: Never smoker Past Alcohol Use History: Occasional Past Drug Use History: None Reported - Past Family History Mother Family Medical History: Cancer Additional Family Medical History / Comment(s): Liver cancer Father Family Medical History: Hypertension General Exam - General Exam Comments Initial Comments: GENERAL: Patient is well-developed and well-nourished. Patient is nontoxic and well- hydrated and is in mild distress. ENT: Neck is soft and supple. No significant lymphadenopathy is noted. Oropharynx is clear. Moist mucous membranes. Neck has full range of motion without eliciting any pain. EYES: The sclera were anicteric and conjunctiva were pink and moist. Extraocular movements were intact and pupils were equal round and reactive to light. Eyelids were unremarkable. PULMONARY: Unlabored respirations. Good breath sounds bilaterally. No audible rales rhonchi or wheezing was noted. CARDIOVASCULAR: There is a regular rate and rhythm without any murmurs gallops or rubs. ABDOMEN: Soft and nontender with normal bowel sounds. SKIN: Skin is clear with no lesions or rashes and otherwise unremarkable. NEUROLOGIC: Patient is alert and oriented x3. Cranial nerves II through XII are grossly intact. Motor and sensory are also intact. Normal speech, volume and content. Symmetrical smile. MUSCULOSKELETAL: Normal extremities with adequate strength and full range of motion. Slight edema on the left leg 2+ edema on the right leg. Calf tenderness on the right. LYMPHATICS: No significant lymphadenopathy is noted PSYCHIATRIC: Normal psychiatric evaluation. Limitations: no limitations Course Vital Signs 03/08/21 16:27 Temperature 98.2 F Pulse Rate 94 Respiratory 18 Rate Blood Pressure 139/87 O2 Sat by Pulse 99 Oximetry Medical Decision Making - Medical Decision Making EKG shows normal sinus rhythm at 82 bpm WY interval 250 QRS is 80 QT interval 382 QTC is 446 per patient's EKG shows no ST segment elevation or depression. The patient's ultrasound shows no DVT. Patient's CAT scan of the chest shows no PE and no acute lung abnormality. I gave the patient the option to stay because we have not found an answer for the edema but she wanted to go home and follow-up with a primary medical care doctor. I suggested he could be possibly her calcium channel darrick causing her peripheral edema - Lab Data Result diagrams: 03/08/21 16:48 03/08/21 16:48 Lab Results 03/08/21 03/08/21 03/08/21 Range/Units 16:48 16:48 16:48 WBC 6.8 (3.8-10.6) k/uL RBC 4.62 (3.80-5.40) m/uL Hgb 12.5 (11.4-16.0) gm/dL Hct 38.7 (34.0-46.0) % MCV 83.7 (80.0-100.0) fL MCH 27.0 (25.0-35.0) pg MCHC 32.2 (31.0-37.0) g/dL RDW 14.1 (11.5-15.5) % Plt Count 419 (150-450) k/uL MPV 7.3 Neutrophils % 61 % Lymphocytes % 24 % Monocytes % 7 % Eosinophils % 4 % Basophils % 2 % Neutrophils # 4.2 (1.3-7.7) k/uL Lymphocytes # 1.6 (1.0-4.8) k/uL Monocytes # 0.5 (0-1.0) k/uL Eosinophils # 0.3 (0-0.7) k/uL Basophils # 0.1 (0-0.2) k/uL PT 10.0 (9.0-12.0) sec INR 0.9 (<1.2) APTT 23.8 (22.0-30.0) sec D-Dimer 0.63 H (<0.60) mg/L FEU Sodium 137 (137-145) mmol/L Potassium 3.9 (3.5-5.1) mmol/L Chloride 99 (98-107) mmol/L Carbon Dioxide 26 (22-30) mmol/L Anion Gap 12 mmol/L BUN 17 (7-17) mg/dL Creatinine 1.04 (0.52-1.04) mg/dL Est GFR (CKD-EPI)AfAm 66 (>60 ml/min/1.73 sqM) Est GFR (CKD-EPI)NonAf 58 (>60 ml/min/1.73 sqM) Glucose 122 H (74-99) mg/dL Calcium 9.9 (8.4-10.2) mg/dL Magnesium 2.3 (1.6-2.3) mg/dL Total Bilirubin 0.4 (0.2-1.3) mg/dL AST 30 (14-36) U/L ALT 22 (4-34) U/L Alkaline Phosphatase 181 H (38-126) U/L Troponin I (0.000-0.034) ng/mL NT-Pro-B Natriuret Pep pg/mL Total Protein 7.3 (6.3-8.2) g/dL Albumin 4.8 (3.5-5.0) g/dL 03/08/21 03/08/21 Range/Units 16:48 16:48 WBC (3.8-10.6) k/uL RBC (3.80-5.40) m/uL Hgb (11.4-16.0) gm/dL Hct (34.0-46.0) % MCV (80.0-100.0) fL MCH (25.0-35.0) pg MCHC (31.0-37.0) g/dL RDW (11.5-15.5) % Plt Count (150-450) k/uL MPV Neutrophils % % Lymphocytes % % Monocytes % % Eosinophils % % Basophils % % Neutrophils # (1.3-7.7) k/uL Lymphocytes # (1.0-4.8) k/uL Monocytes # (0-1.0) k/uL Eosinophils # (0-0.7) k/uL Basophils # (0-0.2) k/uL PT (9.0-12.0) sec INR (<1.2) APTT (22.0-30.0) sec D-Dimer (<0.60) mg/L FEU Sodium (137-145) mmol/L Potassium (3.5-5.1) mmol/L Chloride (98-107) mmol/L Carbon Dioxide (22-30) mmol/L Anion Gap mmol/L BUN (7-17) mg/dL Creatinine (0.52-1.04) mg/dL Est GFR (CKD-EPI)AfAm (>60 ml/min/1.73 sqM) Est GFR (CKD-EPI)NonAf (>60 ml/min/1.73 sqM) Glucose (74-99) mg/dL Calcium (8.4-10.2) mg/dL Magnesium (1.6-2.3) mg/dL Total Bilirubin (0.2-1.3) mg/dL AST (14-36) U/L ALT (4-34) U/L Alkaline Phosphatase (38-126) U/L Troponin I <0.012 (0.000-0.034) ng/mL NT-Pro-B Natriuret Pep 40 pg/mL Total Protein (6.3-8.2) g/dL Albumin (3.5-5.0) g/dL Disposition Clinical Impression: Peripheral edema Disposition: HOME SELF-CARE Condition: Good Instructions (If sedation given, give patient instructions): Leg Edema (ED) Additional Instructions: I suggested the patient speak with her primary medical care doctor and possibly switch hyper tension medicines to a 9 calcium channel darrick Referrals: Yvrose Cordoba MD [Primary Care Provider] - 1-2 days Time of Disposition: 20:34
--- NOTE | 2021-03-08 18:24 | US ---
EXAMINATION TYPE: US venous doppler duplex LE RT DATE OF EXAM: 03/08/2021 4:47 PM COMPARISON: NONE CLINICAL HISTORY: Swollen right leg. recent big tow surgery January 2021, swelling in right leg since, no h/o dvt SIDE PERFORMED: Right TECHNIQUE: The lower extremity deep venous system is examined utilizing real time linear array sonog aleksandar with graded compression, doppler sonography and color-flow sonography. VESSELS IMAGED: Common Femoral Vein Deep Femoral Vein Greater Saphenous Vein * Femoral Vein Popliteal Vein Small Saphenous Vein * Proximal Calf Veins (* superficial vessels) Right Leg: Grayscale, color doppler, spectral doppler imaging performed of the deep veins of the low er extremities. There is normal flow, compressibility, vascular waveforms. IMPRESSION: No DVT of the right lower extremity.
--- NOTE | 2021-03-08 19:50 | XR ---
EXAM: XR Chest, 2 Views CLINICAL HISTORY: ITS.REASON XR Reason: difficulty breathing TECHNIQUE: Frontal and lateral views of the chest. COMPARISON: Chest radiograph on 06/04/2020 FINDINGS: Hardware: None. Lungs/pleura: Normal. No focal consolidation. No pleural effusion or pneumothorax. Heart/mediastinum: Normal. No cardiomegaly. Soft tissues: Unremarkable. Bones: No acute fracture. Upper abdomen: Normal. IMPRESSION: No acute disease identified.
--- NOTE | 2021-03-08 20:17 | CT ---
EXAMINATION TYPE: CT chest angio for PE DATE OF EXAM: 03/08/2021 COMPARISON: Same day chest radiograph HISTORY: Right leg swelling and redness x3 months. CT DLP: 314.7 mGycm Automated exposure control for dose reduction was used. CONTRAST: CT Chest for pulmonary embolism performed with with IV Contrast, patient injected with 60ml mL of Iso hanny 370. FINDINGS: LUNGS: No focal airspace opacity. There is no pleural effusion or pneumothorax seen. The tracheobron chial tree is patent. MEDIASTINUM: There is satisfactory enhancement of the pulmonary artery and its branches, there is no CT evidence for pulmonary embolism. There are no greater than 1 cm hilar or mediastinal lymph nodes. No pericardial effusion is seen. Cardiac size normal. Thoracic aorta normal in caliber. OTHER: Visualized portions of the adrenal glands are normal. Degenerative changes of the spine. IMPRESSION: 1. No evidence of pulmonary embolism. 2. No acute cardiothoracic process.
[2021-03-08 21:37] VITALS: BP 130/82; PULSE 87
== END 2021-03-08 21:36 | disposition home or self-care (01) ==
LOC: EC 16:22
DX: R60.9 Edema, unspecified (principal); R06.02 Shortness of breath; M79.89 Other specified soft tissue disorders; F32.9 Major depressive disorder, single episode, unspecified; F90.9 Attention-deficit hyperactivity disorder, unspecified type; E11.9 Type 2 diabetes mellitus without complications; I10 Essential (primary) hypertension; M19.90 Unspecified osteoarthritis, unspecified site; G47.30 Sleep apnea, unspecified; Z86.73 Personal history of transient ischemic attack (TIA), and cerebral infarction without residual deficits; Z79.82 Long term (current) use of aspirin; Z79.84 Long term (current) use of oral hypoglycemic drugs; Z20.822 Contact with and (suspected) exposure to COVID-19
CPT/HCPCS: 36415; 93005; 85379; 83880; 80053; 83735; 84484; 85025; 85610; 85730; 87635; 71046; 93971; 71275; 99285; Q9967

== ENCOUNTER → 2021-04-25 | Outpatient (CLI) | payer BC ==
--- NOTE | 2021-04-25 10:39 | MR ---
EXAMINATION TYPE: MR brain wo con DATE OF EXAM: 04/25/2021 COMPARISON: CT scan 06/04/2020 HISTORY: Memory loss, Imbalance TECHNIQUE: T1-weighted sagittal, T2, FLAIR, and diffusion axial, and T2 coronal coronal views of the brain are submitted. FINDINGS: There is no evidence of acute ischemia. The ventricles, basal cisterns, and sulci overlying the conv exities are consistent with the patient's age. There is no mass effect. Multiple areas of abnormal signal in the white matter are nonspecific. Small CSF prominence measuring 3 cm along the left boat finisher ior fossa adjacent to the cerebellar hemisphere suggestive of a small arachnoid cyst. Craniocervical junction maintained. Sella turcica has a normal appearance. Tiny areas of abnormal sig nal involving the aidan suggestive of tiny remote infarcts. No cerebellopontine angle mass. Changes of chronic sinusitis. Orbits symmetric. Changes of chronic ma stoiditis. IMPRESSION: 1. No acute intracranial process. Mild degenerative and nonspecific white matter changes most typical remote microvascular ischemia. 2. Suspect a small posterior fossa arachnoid cyst along the left cerebellar hemisphere measuring 3 cm . 3. Changes of chronic sinusitis.
== END | disposition home or self-care (01) ==
LOC: RADMRIMAIN 09:46
PROVIDERS: ATTEND Psychiatry & Neurology Neurology
DX: I67.82 Cerebral ischemia (principal); J32.9 Chronic sinusitis, unspecified
CPT/HCPCS: 70551

== ENCOUNTER → 2023-11-28 | Outpatient (CLI) | payer OTHER ==
--- NOTE | 2023-12-02 10:13 | MM ---
Reason for Exam: Screening (asymptomatic). Last mammogram was performed 3 year(s) and 2 month(s) ago. Patient History: Menarche at age 17. First Full-Term at age 22. Hysterectomy at age 55. Postmenopausal. Patient has history of breast feeding. Other cancer, age 64. Maternal aunt had breast cancer. Risk Values: Brittani 5 year model risk: 1.4%. NCI Lifetime model risk: 4.9%. Prior Study Comparison: 11/18/2017 Screening Mammogram, [place]. 12/21/2018 Screening Mammogram, [place]. 10/04/2020 Bilateral Screening Mammogram, [facility]. Tissue Density: The breast tissue is heterogeneously dense. This may lower the sensitivity of mammography. Findings: Analyzed By CAD. There is no suspicious group of microcalcifications or new suspicious mass. Benign-appearing calcifications bilaterally. Overall Assessment: Benign, BI-RAD 2 Management: Screening Mammogram of both breasts in [address] [facility] will attempt to contact patient to return for supplemental views and ultrasound if indicated. Patient should continue monthly self-breast exams. A clinical breast exam by your physician is recommended on an annual basis. This exam should not preclude additional follow-up of suspicious palpable abnormalities. Note on Brittani scores and lifetime risk: 1. A Brittani score greater than 3% is considered moderate risk. If this is the case, consider specialist referral to assess eligibility for a risk reducing agent. 2. If overall lifetime risk for the development of breast cancer is 20% or higher, the patient may qualify for future screening with alternating mammogram and breast MRI. Electronically signed and approved by: Parker Garza DO
== END | disposition home or self-care (01) ==
LOC: RADBDWWP 15:12
PROVIDERS: ATTEND Family Medicine
DX: Z12.31 Encounter for screening mammogram for malignant neoplasm of breast (principal); Z78.0 Asymptomatic menopausal state; Z80.3 Family history of malignant neoplasm of breast
CPT/HCPCS: 77067

== ENCOUNTER → 2024-10-04 | Outpatient (CLI) | payer OTHER ==
--- NOTE | 2024-10-04 16:36 | US ---
EXAMINATION TYPE: US thyroid st tissue head/neck DATE OF EXAM: 10/04/2024 COMPARISON: EXAMINATION TYPE: US thyroid st tissue head/neck DATE OF EXAM: 10/04/2024 COMPARISON: NONE CLINICAL INDICATION: Female, 69 years old with history of R59.0 LOCALIZED ENLARGED LYMPH NODES; Lymph nodes pain in neck. TECHNIQUE: Multiple grayscale and color Doppler ultrasound images of the bilateral neck were obtaine d. FINDINGS/IMPRESSION: Hypoechoic area right neck mid line .8 x .4 cm. Central fatty hilum demonstrate d. This is most consistent with a nonenlarged benign-appearing lymph node. Left neck scanned with no abnormalities seen. [facility], , 10/04/2024 4:34 PM
== END | disposition home or self-care (01) ==
LOC: RADUSWWP 15:35
PROVIDERS: ATTEND Family Medicine
DX: R59.0 Localized enlarged lymph nodes (principal)
CPT/HCPCS: 76536

== ENCOUNTER → 2024-12-15 | Outpatient (CLI) | payer MEDICARE ==
--- NOTE | 2024-12-15 14:37 | MM ---
Reason for Exam: Screening (asymptomatic). Last screening mammogram was performed 12 month(s) ago. Patient History: Menarche at age 17. First Full-Term at age 22. Hysterectomy at age 55. Postmenopausal. Patient has history of breast feeding. Other cancer, age 64. Maternal aunt had breast cancer. Risk Values: Brittani 5 year model risk: 1.4%. NCI Lifetime model risk: 4.8%. Prior Study Comparison: 12/21/2018 Screening Mammogram, [place]. 10/04/2020 Bilateral Screening Mammogram, [facility]. 11/28/2023 Bilateral MG screening mammo w CAD, [facility]. Tissue Density: The breasts are heterogeneously dense, which may obscure small masses. Findings: Analyzed By CAD. Right breast: There is no suspicious group of microcalcifications or new suspicious mass. Left breast: There is no suspicious group of microcalcifications or new suspicious mass. Overall Assessment: Negative, BI-RAD 1 Management: Screening Mammogram of both breasts in [address] [facility] will attempt to contact patient to return for supplemental views and ultrasound if indicated. Patient should continue monthly self-breast exams. A clinical breast exam by your physician is recommended on an annual basis. This exam should not preclude additional follow-up of suspicious palpable abnormalities. Note on Brittani scores and lifetime risk: 1. A Brittani score greater than 3% is considered moderate risk. If this is the case, consider specialist referral to assess eligibility for a risk reducing agent. 2. If overall lifetime risk for the development of breast cancer is 20% or higher, the patient may qualify for future screening with alternating mammogram and breast MRI. [facility], , 12/15/2024 2:32 PM. Electronically signed and approved by: Parker Garza DO
== END | disposition home or self-care (01) ==
LOC: RADMAMWWP 13:17
PROVIDERS: ATTEND Family Medicine
DX: Z12.31 Encounter for screening mammogram for malignant neoplasm of breast (principal); R92.333 Mammographic heterogeneous density, bilateral breasts; Z78.0 Asymptomatic menopausal state; Z80.3 Family history of malignant neoplasm of breast
CPT/HCPCS: 77063; 77067

== ENCOUNTER → 2024-12-15 | Outpatient (CLI) | payer MEDICARE ==
--- NOTE | 2024-12-15 14:44 | CT ---
EXAMINATION TYPE: CT soft tissue neck wo con DATE OF EXAM: 12/15/2024 COMPARISON: None CLINICAL INDICATION: Female, 69 years old with history of M54.2 NECK PAIN; PHH, Neck pain and stiffne ss. TECHNIQUE: CT scan of the neck is performed , patient injected with mL of , axial images are obtaine d, coronal and sagittal reformatted images are reviewed. CT DLP: 313.[address] CTDI: mGy Automated exposure control for dose reduction was used. FINDINGS: There are no supraclavicular lymph nodes. There is no definite thyroid gland tissue raising question of prior thyroidectomy. The larynx including the cricoid, arytenoid and thyroid cartilages as well as the vocal cords are nor mal and symmetric. The tongue base, epiglottis, aryepiglottic folds, piriform sinuses and vallecula are normal and symme tric. The parotid and submandibular glands are normal and symmetric without focal mass or gross enlargement . There is no pharyngeal or parapharyngeal soft tissue mass or enhancement The great vessels of the neck are normal. There is no soft tissue swelling, inflammation or abscess. There is marked degenerative disc disease at the C5-6 and C6-7 levels. Secondary to posterior spondylosis there is mild cervical stenosis C4-5 level and moderate cervical stenosis at C5-6 level. There is moderate to severe bony neural foraminal encroachment bilaterally at C4-5, C5-6 and C6-7 levels. IMPRESSION: 1. Soft tissue neck within normal limits with the exception of questionable absence of thyroid gland raising the question of prior thyroidectomy and surgical history correlation is recommended. 2. Advanced degenerative disc disease in the mid-lower cervical spine with multilevel spinal stenosis and bony neural foraminal stenosis as described above.. [facility], , 12/15/2024 2:42 PM
== END | disposition home or self-care (01) ==
LOC: RADCTMAIN 13:50
PROVIDERS: ATTEND Otolaryngology
DX: M48.02 Spinal stenosis, cervical region (principal); M50.30 Other cervical disc degeneration, unspecified cervical region; E89.0 Postprocedural hypothyroidism
CPT/HCPCS: 70490

== ENCOUNTER 2025-05-26 12:33 | Emergency (ER) | payer MEDICARE ==
--- NOTE | 2025-05-26 14:12 | XR ---
EXAMINATION TYPE: XR chest 2V DATE OF EXAM: 05/26/2025 2:00 PM COMPARISON: Chest radiographs from 03/08/2021 TECHNIQUE: XR chest 2V Frontal and lateral views of the chest. CLINICAL INDICATION:Female, 70 years old with history of difficulty breathing; FINDINGS: Lungs/Pleura: There is no evidence of pleural effusion, focal consolidation, or pneumothorax. Pulmonary vascularity: Unremarkable. Heart/mediastinum: Cardiomediastinal silhouette is unremarkable. Musculoskeletal: No acute osseous pathology. IMPRESSION: No acute cardiopulmonary disease/process. [facility], , 05/26/2025 2:10 PM
[2025-05-26 14:31] LABS: Basophils # (A) 0.09 10*3/uL (0.00-0.10); Basophils % (A) 1.9 %; Eosinophils # (A) 0.18 10*3/uL (0.04-0.35); Eosinophils % (A) 3.9 %; HCT 40.1 % (37.2-46.3); HGB 13.9 g/dL (12.0-15.0); Lymphocytes # (A) 1.33 10*3/uL (0.90-5.00); Lymphocytes % (A) 28.7 %; MCH 30.5 pg (27.0-32.0); MCHC 34.7 g/dL (32.0-37.0); MCV 87.9 fL (80.0-97.0); Monocytes # (A) 0.43 10*3/uL (0.20-1.00); Monocytes % (A) 9.3 %; Neutrophils # (A) 2.59 10*3/uL (1.80-7.70); Neutrophils % (A) 56.0 %; Platelet Count 322 10*3/uL (140-440); RBC 4.56 10*6/uL (4.10-5.20); RDW 12.8 % (11.5-14.5); WBC 4.63 10*3/uL (4.50-10.00)
[2025-05-26 14:43] LABS: ALT 41 U/L (4-34); AST 37 U/L (14-36); African American GFR (CKD) >90 (>60 ml/min/1.73 sqM); Albumin 4.8 g/dL (3.5-5.0); Alkaline Phosphatase 131 U/L (38-126); Anion Gap 10 mmol/L; Blood Urea Nitrogen 13 mg/dL (7-17); Calcium 10.0 mg/dL (8.4-10.2); Carbon Dioxide 28 mmol/L (22-30); Chloride 93 mmol/L (98-107); Glucose 93 mg/dL (74-99); Non-African American GFR(CKD) 89 (>60 ml/min/1.73 sqM); Potassium 4.9 mmol/L (3.5-5.1); Sodium 131 mmol/L (137-145); Total Protein 7.3 g/dL (6.3-8.2)
[2025-05-26 14:56] LABS: INR 0.9 (<1.2); Partial Thromboplastin Time 24.4 sec (22.0-30.0); Prothrombin Time 10.2 sec (10.0-12.5)
[2025-05-26 15:04] LABS: RSV Not Detected (Not Detectd)
--- NOTE | 2025-05-26 15:23 | ED ---
General Adult HPI - General Chief complaint: Shortness of Breath Stated complaint: Chest pain Time Seen by Provider: 05/26/25 14:35 Source: patient, RN notes reviewed, old records reviewed Mode of arrival: ambulatory Limitations: no limitations - History of Present Illness Initial comments: 70-year-old female presenting for evaluation of cough and chest tightness. Patient states that she was exposed to coronavirus earlier in the week. She developed cough and chest tightness. Patient denies prior history of CAD. She denies fever. States the cough is nonproductive, dry cough. No abdominal pain nausea vomiting. No diaphoresis. - Related Data Home Medications Medication Instructions Recorded Confirmed Atorvastatin Calcium [Lipitor] 80 mg PO HS 06/04/20 03/08/21 Levothyroxine Sodium [Synthroid] 125 mcg PO DAILY 06/04/20 03/08/21 Losartan [Cozaar] 50 mg PO HS 06/04/20 03/08/21 Venlafaxine HCl [Effexor] 100 mg PO BID 06/04/20 03/08/21 amLODIPine [Norvasc] 10 mg PO HS 06/04/20 03/08/21 buPROPion [Wellbutrin] 75 mg PO BID 06/04/20 03/08/21 Cyanocobalamin [Vitamin B-12] 500 mcg PO DAILY 03/08/21 03/08/21 Multivitamins, Thera [Multivitamin 1 tab PO DAILY 03/08/21 03/08/21 (formulary)] Previous Rx's Medication Instructions Recorded Aspirin 325 mg PO DAILY #30 tab 06/06/20 Allergies Allergy/AdvReac Type Severity Reaction Status Date / Time No Known Allergies Allergy Verified 05/26/25 12:43 Review of Systems ROS Statement: Those systems with pertinent positive or pertinent negative responses have been documented in the HPI. ROS Other: All systems not noted in ROS Statement are negative. Past Medical History Past Medical History: CVA/TIA, Diabetes Mellitus, Hyperlipidemia, Hypertension, Osteoarthritis (OA), Sleep Apnea/CPAP/BIPAP, Thyroid Disorder Additional Past Medical History / Comment(s): type 2 DM. February 2020 fell down the steps and hit the back of head on wall. no loss of consciousness. Did not have medical assessment at that time. 05/31/20 tripped on carpet on stairs and twisted right ankle and knee and was seen in Urgent Care. History of Any Multi-Drug Resistant Organisms: None Reported Past Surgical History: Section, Hysterectomy, Orthopedic Surgery Additional Past Surgical History / Comment(s): thyroidectomy, R meniscus repair, partial hysterectomy Past Anesthesia/Blood Transfusion Reactions: No Reported Reaction Past Psychological History: ADD/ADHD, Bipolar, Depression Smoking Status: Never smoker Past Alcohol Use History: Occasional Past Drug Use History: None Reported - Past Family History Mother Family Medical History: Cancer Additional Family Medical History / Comment(s): Liver cancer Father Family Medical History: Hypertension General Exam Limitations: no limitations General appearance: alert, in no apparent distress Head exam: Present: atraumatic, normocephalic Eye exam: Present: normal appearance, PERRL ENT exam: Present: normal exam Neck exam: Present: normal inspection. Absent: tenderness, meningismus Respiratory exam: Present: normal lung sounds bilaterally. Absent: respiratory distress, wheezes, rales, rhonchi Cardiovascular Exam: Present: regular rate, normal rhythm GI/Abdominal exam: Present: soft. Absent: distended, tenderness, guarding Extremities exam: Present: normal inspection, normal capillary refill. Absent: pedal edema, calf tenderness Neurological exam: Present: alert, oriented X3, CN II-XII intact. Absent: motor sensory deficit Psychiatric exam: Present: normal affect, normal mood Skin exam: Present: warm, dry, intact. Absent: cyanosis, diaphoretic Course Vital Signs 05/26/25 12:40 Temperature 97.8 F Pulse Rate 69 Respiratory 20 Rate Blood Pressure 139/87 O2 Sat by Pulse 100 Oximetry Medical Decision Making - Medical Decision Making Was pt. sent in by a medical professional or institution (Dr. PA, [employer], urgent care, hospital, or half-way...) When possible be specific @ -No Did you speak to anyone other than the patient for history (EMS, parent, family, police, friend...)? What history was obtained from this source @ -No Did you review nursing and triage notes (agree or disagree)? Why? @ -I reviewed and agree with nursing and triage notes Were old charts reviewed (outside hosp., previous admission, EMS record, old EKG, old radiological studies, urgent care reports/EKG's, half-way records)? Report findings @ -No old charts were reviewed Differential Diagnosis upper respiratory infection, coronavirus, pneumonia, ACS EKG interpreted by me (3pts min.). @ -Sinus rhythm with sinus arrhythmia, rate rate of 64, AL interval 158, QRS duration 84, QTc [address] segment elevation. X-rays interpreted by me (1pt min.). @Chest x-ray negative for acute cardiopulmonary finding CT interpreted by me (1pt min.). @ -None done U/S interpreted by me (1pt. min.). @ -None done What testing was considered but not performed or refused? (CT, X-rays, U/S, labs)? Why? @ -None What meds were considered but not given or refused? Why? @ -None Did you discuss the management of the patient with other professionals (professionals i.e. , PA, [employer], lab, RT, psych nurse, psychosocial rehabilitation counselor, gas leak tester, teacher, commercial loan officer, embedded case manager)? Give summary @ -No Was smoking cessation discussed for >3mins.? @ -No Was critical care preformed (if so, how long)? @ -No Were there social determinants of health that impacted care today? How? (Homelessness, low income, unemployed, alcoholism, drug addiction, transportation, low edu. Level, literacy, decrease access to med. care, senior care, rehab)? @ -No Was there de-escalation of care discussed even if they declined (Discuss DNR or withdrawal of care, Hospice)? DNR status @ -No What co-morbidities impacted this encounter? (DM, HTN, Smoking, COPD, CAD, Cancer, CVA, ARF, Chemo, Hep., AIDS, mental health diagnosis, sleep apnea, morbid obesity)? @TIA Was patient admitted / discharged? Hospital course, mention meds given and route, prescriptions, significant lab abnormalities, going to OR and other pertinent info. @70-year-old female with cough, chest tightness. Dry cough. EKG sinus without ST segment elevation. Patient does test negative for coronavirus. She has a mild transaminitis without abdominal pain or vomiting. Patient chest x-ray is clear no focal pneumonia. Patient reassured. Return parameters discussed. Undiagnosed new problem with uncertain prognosis? @ -No Drug Therapy requiring intensive monitoring for toxicity (Heparin, Nitro, Insulin, Cardizem)? @ -No Were any procedures done? @ -No Diagnosis/symptom? @ -Cough, upper respiratory infection Acute, or Chronic, or Acute on Chronic? @Acute Uncomplicated (without systemic symptoms) or Complicated (systemic symptoms)? @ -Default Side effects of treatment? @ -No Exacerbation, Progression, or Severe Exacerbation? @ -No Poses a threat to life or bodily function? How? (Chest pain, [place], [place], pneumonia, PE, COPD, DKA, ARF, appy, cholecystitis, CVA, Diverticulitis, Homicidal, Suicidal, threat to staff... and all critical care pts) @ -No - Lab Data Result diagrams: 05/26/25 14:22 05/26/25 14:22 Lab Results 05/26/25 05/26/25 05/26/25 Range/Units 14:22 14:22 14:22 WBC 4.63 (4.50-10.00) 10*3/uL RBC 4.56 (4.10-5.20) 10*6/uL Hgb 13.9 (12.0-15.0) g/dL Hct 40.1 (37.2-46.3) % MCV 87.9 (80.0-97.0) fL MCH 30.5 (27.0-32.0) pg MCHC 34.7 (32.0-37.0) g/dL Plt Count 322 (140-440) 10*3/uL MPV 9.1 L (9.5-12.2) fL Immature Gran % (Auto) 0.2 % Neutrophils % 56.0 % Lymphocytes % 28.7 % Monocytes % 9.3 % Eosinophils % 3.9 % Basophils % 1.9 % Immature Gran # 0.01 (0.00-0.04) 10*3/uL Neutrophils # 2.59 (1.80-7.70) 10*3/uL Lymphocytes # 1.33 (0.90-5.00) 10*3/uL Monocytes # 0.43 (0.20-1.00) 10*3/uL Eosinophils # 0.18 (0.04-0.35) 10*3/uL Basophils # 0.09 (0.00-0.10) 10*3/uL PT 10.2 (10.0-12.5) sec INR 0.9 (<1.2) APTT 24.4 (22.0-30.0) sec Sodium 131 L (137-145) mmol/L Potassium 4.9 (3.5-5.1) mmol/L Chloride 93 L (98-107) mmol/L Carbon Dioxide 28 (22-30) mmol/L Anion Gap 10 mmol/L BUN 13 (7-17) mg/dL Creatinine 0.70 (0.52-1.04) mg/dL Est GFR (CKD-EPI)AfAm >90 (>60 ml/min/1.73 sqM) Est GFR (CKD-EPI)NonAf 89 (>60 ml/min/1.73 sqM) Glucose 93 (74-99) mg/dL Plasma Lactic Acid Claudy (0.7-2.0) mmol/L Calcium 10.0 (8.4-10.2) mg/dL Total Bilirubin 0.4 (0.2-1.3) mg/dL AST 37 H (14-36) U/L ALT 41 H (4-34) U/L Alkaline Phosphatase 131 H (38-126) U/L Troponin I (0.000-0.034) ng/mL Total Protein 7.3 (6.3-8.2) g/dL Albumin 4.8 (3.5-5.0) g/dL Influenza Type A (PCR) (Not Detectd) Influenza Type B (PCR) (Not Detectd) RSV (PCR) (Not Detectd) SARS-CoV-2 (PCR) (Not Detectd) 05/26/25 05/26/25 05/26/25 Range/Units 14:22 14:22 14:22 WBC (4.50-10.00) 10*3/uL RBC (4.10-5.20) 10*6/uL Hgb (12.0-15.0) g/dL Hct (37.2-46.3) % MCV (80.0-97.0) fL MCH (27.0-32.0) pg MCHC (32.0-37.0) g/dL Plt Count (140-440) 10*3/uL MPV (9.5-12.2) fL Immature Gran % (Auto) % Neutrophils % % Lymphocytes % % Monocytes % % Eosinophils % % Basophils % % Immature Gran # (0.00-0.04) 10*3/uL Neutrophils # (1.80-7.70) 10*3/uL Lymphocytes # (0.90-5.00) 10*3/uL Monocytes # (0.20-1.00) 10*3/uL Eosinophils # (0.04-0.35) 10*3/uL Basophils # (0.00-0.10) 10*3/uL PT (10.0-12.5) sec INR (<1.2) APTT (22.0-30.0) sec Sodium (137-145) mmol/L Potassium (3.5-5.1) mmol/L Chloride (98-107) mmol/L Carbon Dioxide (22-30) mmol/L Anion Gap mmol/L BUN (7-17) mg/dL Creatinine (0.52-1.04) mg/dL Est GFR (CKD-EPI)AfAm (>60 ml/min/1.73 sqM) Est GFR (CKD-EPI)NonAf (>60 ml/min/1.73 sqM) Glucose (74-99) mg/dL Plasma Lactic Acid Claudy 0.6 L (0.7-2.0) mmol/L Calcium (8.4-10.2) mg/dL Total Bilirubin (0.2-1.3) mg/dL AST (14-36) U/L ALT (4-34) U/L Alkaline Phosphatase (38-126) U/L Troponin I <0.012 (0.000-0.034) ng/mL Total Protein (6.3-8.2) g/dL Albumin (3.5-5.0) g/dL Influenza Type A (PCR) Not Detected (Not Detectd) Influenza Type B (PCR) Not Detected (Not Detectd) RSV (PCR) Not Detected (Not Detectd) SARS-CoV-2 (PCR) Not Detected (Not Detectd) Disposition Clinical Impression: Chest pain, Upper respiratory infection Disposition: HOME SELF-CARE Condition: Fair Instructions (If sedation given, give patient instructions): Chest Pain (ED), Upper Respiratory Infection (ED) Is patient prescribed a controlled substance at d/c from ED?: No Referrals: Italo Goode DO [Primary Care Provider] - 1-2 days Time of Disposition: 15:23
[2025-05-26 15:43] VITALS: BP 169/97; PULSE 78; RESP 18; TEMP 98.1
== END 2025-05-26 15:44 | disposition home or self-care (01) ==
LOC: EC 12:33
DX: R07.9 Chest pain, unspecified (principal); J06.9 Acute upper respiratory infection, unspecified
CPT/HCPCS: 36415; 71046; 80053; 83605; 84484; 85025; 85610; 85730; 87636; 93005; 99285